=== PATIENT | male | born 1955 | race African-American/Black ===

== ENCOUNTER 2019-09-08 10:43 | Inpatient (IN) ==
[2019-09-08 11:46] LABS: Basophils % 0.1 %; Eosinophils % 0.2 %; Hematocrit 28.2 % (37.5-50.1); Immature Granulocytes % 0.5 % (0-4); Lymphocytes # 0.2 K/mcL (0.6-4.6); Lymphocytes % 0.8 %; Mean Corpuscular HGB Conc 35.5 g/dL (31.6-35.5); Mean Corpuscular Hemoglobin 29.9 pg (28.0-33.3); Mean Platelet Volume 10.3 fL (9.4-12.4); Monocytes % 5.5 %; Neutrophils # 17.3 K/mcL (1.6-8.9); Nucleated Red Blood Cells 0.1 /100 WBC (0); Platelet Count 432 K/mcL (140-400); Red Blood Count 3.34 M/mcL (4.19-5.50); Red Cell Distribution Width 17.8 % (11.5-14.5); Segmented Neutrophils % 92.9 %; White Blood Count 18.6 K/mcL (4.3-11.1)
[2019-09-08 11:49] LABS: Mean Corpuscular Volume 84.4 fL (83.0-100.0)
[2019-09-08 11:58] LABS: Bilirubin,Urine Negative (Negative); Blood,Urine Trace (Negative); Color,Urine Yellow (Yellow); Glucose,Urine (UA) Normal (Normal); Ketones,Urine Negative (Negative); Leukocyte Esterase,Urine Negative (Negative); Nitrite,Urine Negative (Negative); PH,Urine 5.5 pH Units (5.0-8.0); Protein,Urine 30 mg/dL (Neg-Trace); Specific Gravity,Urine 1.018 (1.010-1.025); Urobilinogen,Urine Normal (Normal)
[2019-09-08 12:00] LABS: Bacteria,Urine None Seen per hpf (None-Few); Hyaline Casts,Urine None Seen per lpf (None-Few); RBC,Urine 0-3 per hpf (0-3); Squamous Epithelial Cell,Urine Many per lpf (None-Few)
[2019-09-08 12:01] LABS: Clarity,Urine Slightly Cloudy (Clear)
[2019-09-08 12:13] LABS: Amorphous Sediment,Urine Moderate (Few)
[2019-09-08 12:28] LABS: Magnesium 1.6 mg/dL (1.6-2.6); Phosphorous 7.3 mg/dL (2.7-4.5)
[2019-09-08 12:29] LABS: Albumin 2.9 g/dL (3.5-5.7); Albumin/Globulin Ratio 0.6 (1.1-2.2); Bilirubin,Total 0.3 mg/dL (0.3-1.0); Calcium 8.5 mg/dL (8.6-10.3); Globulin 4.6 g/dL (2.4-3.5); Total Protein 7.5 g/dL (6.4-8.9)
[2019-09-08] MEDS ORDERED: Ringers Solution, Lactated 1,000 ML IVC ONE (12:51)
[2019-09-08] MEDS ORDERED: Acetaminophen 325 MG TABLET PO PRN (14:12)
[2019-09-08] MEDS ORDERED: Ondansetron 4 MG/2 ML VIAL IVP PRN (14:12)
[2019-09-08] MEDS ORDERED: Naloxone 0.4 MG/ML INJ IVP PRN (14:12)
[2019-09-08] MEDS: Ringers Solution, Lactated 1,000 ML IVC SCH (18:34)
[2019-09-08] MEDS ORDERED: *HR* OxyCODONE/APAP 5/325 TABLET PO ONE (18:48)
[2019-09-09 03:38] LABS: Basophils % 0.2 %; Eosinophils # 0.2 K/mcL (0.0-0.6); Eosinophils % 1.3 %; Hematocrit 23.1 % (37.5-50.1); Immature Granulocytes % 0.6 % (0-4); Lymphocytes # 0.4 K/mcL (0.6-4.6); Lymphocytes % 2.5 %; Mean Corpuscular HGB Conc 35.5 g/dL (31.6-35.5); Mean Corpuscular Hemoglobin 30.7 pg (28.0-33.3); Mean Corpuscular Volume 86.5 fL (83.0-100.0); Monocytes # 1.4 K/mcL (0.0-1.3); Monocytes % 8.1 %; Platelet Count 365 K/mcL (140-400); Red Blood Count 2.67 M/mcL (4.19-5.50); Red Cell Distribution Width 18.1 % (11.5-14.5); Segmented Neutrophils % 87.3 %; White Blood Count 17.1 K/mcL (4.3-11.1)
[2019-09-09 03:44] LABS: Hemoglobin 8.2 g/dL (12.9-16.9)
[2019-09-09 04:03] LABS: Calcium 8.2 mg/dL (8.6-10.3); Magnesium 1.4 mg/dL (1.6-2.6); Phosphorous 6.2 mg/dL (2.7-4.5); Potassium 4.8 mEq/L (3.5-5.1)
[2019-09-09 04:05] LABS: Uric Acid 12.9 mg/dL (2.3-7.6)
[2019-09-09 04:18] LABS: Thyroid Stimulating Hormone 1.445 mcIU/mL (0.340-5.600)
[2019-09-09] MEDS: Ringers Solution, Lactated 1,000 ML IVC SCH (04:46)
[2019-09-10 03:45] LABS: Basophils % 0.1 %; Eosinophils # 0.2 K/mcL (0.0-0.6); Eosinophils % 1.2 %; Hematocrit 23.2 % (37.5-50.1); Hemoglobin 8.4 g/dL (12.9-16.9); Immature Granulocytes % 0.8 % (0-4); Lymphocytes # 0.4 K/mcL (0.6-4.6); Lymphocytes % 2.7 %; Mean Corpuscular HGB Conc 36.2 g/dL (31.6-35.5); Mean Corpuscular Hemoglobin 30.3 pg (28.0-33.3); Mean Corpuscular Volume 83.8 fL (83.0-100.0); Mean Platelet Volume 10.5 fL (9.4-12.4); Monocytes # 1.1 K/mcL (0.0-1.3); Monocytes % 8.2 %; Neutrophils # 12.1 K/mcL (1.6-8.9); Platelet Count 386 K/mcL (140-400); Red Blood Count 2.77 M/mcL (4.19-5.50); Red Cell Distribution Width 18.1 % (11.5-14.5); White Blood Count 13.8 K/mcL (4.3-11.1)
[2019-09-10 03:59] LABS: Calcium 8.3 mg/dL (8.6-10.3); Magnesium 1.3 mg/dL (1.6-2.6); Phosphorous 5.7 mg/dL (2.7-4.5); Potassium 4.6 mEq/L (3.5-5.1)
[2019-09-10] MEDS ORDERED: *HR* OxyCODONE Immed Rel 5 MG TABLET PO PRN (14:20)
[2019-09-10] MEDS ORDERED: NON-FORMULARY MEDICATION 1 EACH EACH (Lactose-Reduced Food [Ensure Liquid] 1 BOTTLE) PO SCH (15:00)
[2019-09-10] MEDS ORDERED: CAPECITABINE 1000 MG PO SCH (21:00)
[2019-09-10] MEDS: Magnesium Oxide 400 MG TABLET PO SCH (21:28)
[2019-09-11 03:44] LABS: Basophils % 0.2 %; Eosinophils # 0.1 K/mcL (0.0-0.6); Eosinophils % 1.1 %; Hematocrit 22.2 % (37.5-50.1); Hemoglobin 7.9 g/dL (12.9-16.9); Immature Granulocytes % 0.5 % (0-4); Immature Platelets 2.5 % (1.1-6.1); Lymphocytes # 0.4 K/mcL (0.6-4.6); Lymphocytes % 2.7 %; Mean Corpuscular HGB Conc 35.6 g/dL (31.6-35.5); Mean Corpuscular Hemoglobin 30.2 pg (28.0-33.3); Mean Corpuscular Volume 84.7 fL (83.0-100.0); Mean Platelet Volume 10.4 fL (9.4-12.4); Monocytes % 7.9 %; Neutrophils # 11.4 K/mcL (1.6-8.9); Platelet Count 365 K/mcL (140-400); Red Blood Count 2.62 M/mcL (4.19-5.50); Red Cell Distribution Width 18.5 % (11.5-14.5); Segmented Neutrophils % 87.6 %
[2019-09-11 04:25] LABS: BUN/Creatinine Ratio 13 (6-26); Blood Urea Nitrogen 94 mg/dL (8-23); Calcium 8.3 mg/dL (8.6-10.3); Carbon Dioxide 18 mEq/L (23-29); Chloride 105 mEq/L (98-107); Glucose 97 mg/dL (70-105); Magnesium 1.9 mg/dL (1.6-2.6); Osmolality,Calculated 305 (280-300); Potassium 4.5 mEq/L (3.5-5.1); Sodium 133 mEq/L (136-145); eGFR For African Americans 9 (> 60); eGFR For Non-African Americans 8 (> 60)
[2019-09-11] MEDS: NIFEdipine XL (24 HR) 60 MG TAB.ER.24 PO SCH (08:12)
[2019-09-11] MEDS: Magnesium Oxide 400 MG TABLET PO SCH ×2 (08:12→21:39)
[2019-09-11] MEDS: Folic Acid 1 MG TABLET PO SCH (08:13)
[2019-09-11] MEDS ORDERED: Ferumoxytol 510 MG in 0.9 % Sodium Chloride 100 ML IVPB ONE (11:06)
[2019-09-11 14:48] LABS: Iron < 10 mcg/dL (65-175); Transferrin 86 mg/dL (203-362)
[2019-09-12 03:33] LABS: Basophils % 0.1 %; Eosinophils # 0.3 K/mcL (0.0-0.6); Eosinophils % 2.3 %; Hematocrit 21.3 % (37.5-50.1); Hemoglobin 7.6 g/dL (12.9-16.9); Immature Granulocytes % 0.8 % (0-4); Lymphocytes # 0.5 K/mcL (0.6-4.6); Lymphocytes % 3.9 %; Mean Corpuscular HGB Conc 35.7 g/dL (31.6-35.5); Mean Corpuscular Volume 84.2 fL (83.0-100.0); Monocytes # 1.2 K/mcL (0.0-1.3); Neutrophils # 9.9 K/mcL (1.6-8.9); Platelet Count 393 K/mcL (140-400); Red Blood Count 2.53 M/mcL (4.19-5.50); Red Cell Distribution Width 18.5 % (11.5-14.5); Segmented Neutrophils % 82.9 %; White Blood Count 11.9 K/mcL (4.3-11.1)
[2019-09-12 03:54] LABS: Calcium 8.4 mg/dL (8.6-10.3); Magnesium 1.5 mg/dL (1.6-2.6); Potassium 4.3 mEq/L (3.5-5.1)
[2019-09-12] MEDS: Magnesium Oxide 400 MG TABLET PO SCH ×2 (07:19→20:42)
[2019-09-12] MEDS: NIFEdipine XL (24 HR) 60 MG TAB.ER.24 PO SCH (07:19)
[2019-09-12] MEDS: Folic Acid 1 MG TABLET PO SCH (07:19)
[2019-09-12] MEDS ORDERED: 0.9 % Sodium Chloride 250 ML IVC SCH (12:45)
[2019-09-12] MEDS ORDERED: 0.9 % Sodium Chloride 250 ML ONE (20:16)
[2019-09-13 04:19] LABS: Calcium 8.3 mg/dL (8.6-10.3); Potassium 4.1 mEq/L (3.5-5.1)
[2019-09-13 04:21] LABS: Basophils % 0.2 %; Eosinophils # 0.2 K/mcL (0.0-0.6); Eosinophils % 1.7 %; Hematocrit 24.7 % (37.5-50.1); Hemoglobin 8.5 g/dL (12.9-16.9); Immature Granulocytes % 0.9 % (0-4); Lymphocytes # 0.5 K/mcL (0.6-4.6); Lymphocytes % 3.7 %; Mean Corpuscular HGB Conc 34.4 g/dL (31.6-35.5); Mean Corpuscular Hemoglobin 30.1 pg (28.0-33.3); Mean Corpuscular Volume 87.6 fL (83.0-100.0); Mean Platelet Volume 10.4 fL (9.4-12.4); Monocytes # 1.4 K/mcL (0.0-1.3); Monocytes % 10.9 %; Neutrophils # 10.7 K/mcL (1.6-8.9); Platelet Count 390 K/mcL (140-400); Red Blood Count 2.82 M/mcL (4.19-5.50); Red Cell Distribution Width 17.3 % (11.5-14.5); Segmented Neutrophils % 82.6 %
[2019-09-13] MEDS: Magnesium Oxide 400 MG TABLET PO SCH (08:19)
[2019-09-13] MEDS: NIFEdipine XL (24 HR) 60 MG TAB.ER.24 PO SCH (08:19)
[2019-09-13] MEDS: Folic Acid 1 MG TABLET PO SCH (08:19)
[2019-09-13 11:18] VITALS: BP 124/73
== END 2019-09-13 11:50 | disposition left against medical advice (07) | DRG 682 ==
LOC: EMEROOARM 10:43 → 3BNU 10:43 → SUATTDRO 14:00 → OBSVTOIN 14:00 → 3BNU 14:16
PROVIDERS: ADMIT Internal Medicine; ATTEND General Practice